=== PATIENT | male | born 1990 | race Caucasian/White ===

== ENCOUNTER 2017-11-05 17:12 | Emergency (ER) | payer SELFPAY ==
[2017-11-05 17:19] VITALS: BP 131/87; PULSE 121; RESP 16; TEMP 98.8; O2SAT 93
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
[2017-11-05] MEDS ORDERED: OXYCODONE/APAP 5/325 TAB PO ONE (17:28)
[2017-11-05] MEDS ORDERED: OXYCODONE/APAP 5/325MG PREPACK#4 BTL TAKEHOME ONE (17:58)
== END 2017-11-05 18:04 | disposition home or self-care (01) ==
DX: S89.91XA Unspecified injury of right lower leg, initial encounter (principal); F17.200 Nicotine dependence, unspecified, uncomplicated; V29.9XXA Motorcycle rider (driver) (passenger) injured in unspecified traffic accident, initial encounter; Y92.410 Unspecified street and highway as the place of occurrence of the external cause; Y93.55 Activity, bike riding
CPT/HCPCS: L1830